=== PATIENT | male | born 1970 | race Caucasian/White ===

== ENCOUNTER 2018-02-15 13:31 | Emergency (ER) | payer OTHER, SELFPAY ==
[2018-02-15] VITALS (7 sets, daily range): BP systolic 105–125; BP diastolic 60–93; PULSE 103–145; RESP 18–36; TEMP 36.8; O2SAT 99–100; BMI 36.0
--- NOTE | 2018-02-15 14:03 | EKG12_ITS ---
Test Reason : CO EXPOSURE Blood Pressure : / mmHG Vent. Rate : 142 BPM Atrial Rate : 133 BPM P-R Int : 000 ms QRS Dur : 072 ms QT Int : 352 ms P-R-T Axes : 000 075 063 degrees QTc Int : 541 ms Supraventricular tachycardia Low voltage QRS Septal infarct , age undetermined Abnormal ECG Lateral ischemia Confirmed by JESSICA MCKEON, PIO ([id number]), scientific editor LESLIE BIRCH ([id number] on 02/20/2018 1:53:14 PM Referred By: GABRIELLA Confirmed By:PIO LOPEZ MD
[2018-02-15 14:12] LABS: Absolute Lymphocyte Count 2.33 X10^3/ul (0.83-4.51); Absolute Neutrophil Count 20.5 X10^3/uL (2.0-7.7); Basophil# 0.04 X10^3/uL; Basophil% 0.2 % (0-1); Differential Indicated SCAN CRITERIA MET; Eosinophil# 0.02 X10^3/uL; Eosinophils% 0.1 % (0-5); Hematocrit 46.9 % (40-54); Hemoglobin 16.4 g/dl (13.0-16.5); Lymphocyte # 2.33 X10^3/ul (4.0); Lymphocyte % 9.6 % (19-41); Mean Corpuscular Hgb 32.8 pg (27.0-32.0); Mean Corpuscular Volume 93.8 fL (80-94); Mean Platelet Vol. 10.3 fl (6.2-12.0); Monocyte# 1.14 X10^3/uL; Monocyte% 4.7 % (0-10); Neutrophil # 20.52 X10^3/uL (2.7-7.7); Neutrophil % 84.7 % (47-70); POSITIVE COUNT NO; POSITIVE DIFFERENTIAL YES; POSITIVE MORPHOLOGY YES; Platelet Count 371 K/mm3 (150-450); RBC Distribution Width CV 13.2 % (11.6-14.6); RBC Distribution Width SD 45.2 fl (35.1-43.9); White Blood Count 24.2 K/mm3 (4.4-11.0)
[2018-02-15 15:08] LABS: Carboxyhemoglobin Frac (CO) 28.3 % (0.0-1.5)
--- NOTE | 2018-02-15 15:58 | ED.DCSUM_ITS ---
- ER Visit Summary Date of Service: 02/15/18 Chief Complaint: Carbon monoxide poisoning History of Present Illness: The patient is a 47 M who presents somnolent after working in his basement with a gas powered concrete drill. No focal deficits no speech difficulties no vision changes patient denies any cardiac history Physical Examination: Somnolent but easily arousable Moist mucous membranes, no obvious facial deformity No C-spine tenderness supple neck. Regular rate and rhythm without any obvious murmurs Clear lungs bilaterally speaking in full sentences without any obvious respiratory distress Abdomen soft and nontender no guarding or rebound Moves all extremities without any difficulty or pain. Skin does not show any obvious rashes or lesions, no trauma. oriented ?3 with no gross focal deficit Emergency Department Course and Treatment: Carbon monoxide level is 28, however since being here and on high flow oxygen he has improved. We will monitor him until improvement and recheck his carbon monoxide level. Disposition: Plan is to discharge as long as carbon monoxide level is within normal limits Impression: Carbon monoxide poisoning This note was generated with [employer] dictation software. It may contain incorrect words, spelling, and punctuation that were not noted in review of the chart prior to signing ED Disposition - Plan for ED Patient: Disposition: Home or Assisted Living Chief Complaint: Poisoning Instructions: ED CO Poisoning Referrals: Care Physician,No Primary [Primary Care Provider] - 3-5 Days
[2018-02-15 17:31] LABS: Carboxyhemoglobin Frac (CO) 2.9 % (0.0-1.5)
--- NOTE | 2018-02-15 18:20 | ED.RN ---
PT GIVEN WRITTEN AND VERBAL DISCHARGE INSTRUCTIONS. PT VERBALIZES UNDERSTANDING AND DENIES ANY FURTHER QUESTIONS. PT IVS D/C AND COVERED WITH 2X2 GAUZE DRESSING AND PAPER TAPE. MINIMAL BLEEDING NOTED.
== END 2018-02-15 18:21 | disposition home or self-care (01) ==
PROVIDERS: Emergency Medicine; Emergency Provider Emergency Medicine
DX: T58.8X1A Toxic effect of carbon monoxide from other source, accidental (unintentional), initial encounter (principal); R40.0 Somnolence; Y92.008 Other place in unspecified non-institutional (private) residence as the place of occurrence of the external cause
CPT/HCPCS: 36415; 82375; 85025; 93005; 99285; J7030; A4216